=== PATIENT | female | born 1940 | race Caucasian/White ===

== ENCOUNTER 2021-12-29 06:12 | Day surgery (SDC) | payer OTHER, SELFPAY ==
[2021-12-29] MEDS ORDERED: CEFAZOLIN SOD 1 GM in D5W 50 ML IV ONE (07:00)
[2021-12-29] MEDS ORDERED: ACETAMINOPHEN I.V. 1000 MG /100 ML IVPB PREMIX IV ONE (10:02)
[2021-12-29] MEDS ORDERED: fentaNYL CITRATE 250 MCG/5 ML AMP ONE (10:02)
[2021-12-29] MEDS ORDERED: ONDANSETRON HCL 4 MG/2 ML VIAL ONE (10:02)
[2021-12-29] MEDS ORDERED: DEXAMETHASONE SOD PHOSPHATE 4 MG/ML VIAL ONE (10:02)
[2021-12-29] MEDS ORDERED: SEVOFLURANE 15 MIN GAS INH ONE (10:02)
[2021-12-29] MEDS ORDERED: PROPOFOL 200MG/ 20ML VIAL (DIPRIVAN) IV ONE (10:02)
[2021-12-29] MEDS ORDERED: ISOSULFAN BLUE 5 ML VIAL (LYMPHAZURIN) ONE (10:02)
[2021-12-29] MEDS ORDERED: NS IRRIG SOLN 1000 ML IR ONE (10:02)
[2021-12-29] MEDS ORDERED: MIDAZOLAM HCL 5 MG/ML VIAL (VERSED) IV ONE (10:02)
[2021-12-29] MEDS ORDERED: KETOROLAC TROMETHAMINE 30 MG VIAL ONE (10:02)
[2021-12-29] MEDS ORDERED: ceFAZolin SODIUM 1 GM VIAL ONE (10:02)
[2021-12-29] MEDS ORDERED: BUPIVACAINE /EPINEPHRINE/PF 0.25% 30 ML VIAL INJ ONE (10:02)
[2021-12-29] MEDS ORDERED: LR 1,000 ML IV.SOLN IV ONE (10:02)
[2021-12-29] MEDS ORDERED: HYDROmorphone 1 MG/ML INJ. CARTRIDGE IVP PRN ×2 (10:45)
[2021-12-29] MEDS ORDERED: METOCLOPRAMIDE HCL 10 MG/2 ML VIAL IVP PRN (10:45)
[2021-12-29] MEDS ORDERED: LR 1,000 ML IV SCH (10:45)
[2021-12-29] MEDS ORDERED: MEPERIDINE HCL/PF 25 MG/ML DISP.SYRIN IVP PRN (10:45)
[2021-12-29] MEDS ORDERED: D5/0.45 NS 1,000 ML IV SCH (11:45)
[2021-12-29] MEDS ORDERED: HYDROcodone/ACETAMIN 5-325 MG TAB (NORCO/ VICODIN) PO PRN (11:45)
[2021-12-29 14:22] VITALS: BP_SYST 125
== END 2021-12-29 14:00 | disposition home or self-care (01) ==
LOC: SDS 06:12 → SMU 06:49 → SDS 14:00
PROVIDERS: ATTEND Colon & Rectal Surgery
DX: C50.911 Malignant neoplasm of unspecified site of right female breast (principal); M85.80 Other specified disorders of bone density and structure, unspecified site; E11.9 Type 2 diabetes mellitus without complications; Z20.822 Contact with and (suspected) exposure to COVID-19; Z88.5 Allergy status to narcotic agent; Z79.899 Other long term (current) drug therapy
CPT/HCPCS: 19281; 19301; 36415; 38525; 78195; 87426; 88305; 88307; 88329; 88333; 88342; A9541; J0131; J0690; J1100; J1885; J2250; J2405; J2704; J3010; J3490; J7060; J7120; Q9968; U0003; 88309